=== PATIENT | female | born 1945 | race Caucasian/White ===

== ENCOUNTER 2017-09-29 12:24 | Inpatient (IN) | payer MEDICARE, BC ==
[~2017-09-29] VITALS: Ht 162.6 cm; Wt 52.2 kg
[2017-09-29] MEDS ORDERED: FLUO10CA26 PO (12:34)
[2017-09-29] MEDS ORDERED: LEVO137T24 PO (12:34)
--- NOTE | 2017-09-29 13:16 | NUR ---
PT BIB [facility] S/P GLF C/O R HIP AND BUTTOCK PAIN. NO ROTATION OR SHORTENING. DISTAL CMS INTACT. ABLE TO BEND HIP WITH MINIMAL PAIN BUT STATES SHE WAS UNABLE TO AMBULATE. NO OTHER COMPLAINTS. DENIES KO OR HEAD TRAUMA. IN ER BED 08.
[2017-09-29 14:36] LABS: BASOPHILS % (AUTO) 0.3 % (0.0-2.0); EOSINOPHILS # (AUTO) 0.1 /CMM (0.0-0.7); EOSINOPHILS % (AUTO) 0.4 % (0.0-6.0); HEMATOCRIT 25 % (33-45); HEMOGLOBIN 8.7 g/dL (11.5-14.8); LYMPHOCYTES # (AUTO) 0.8 /CMM (0.8-4.8); MEAN CORPUSCULAR HEMOGLOBIN 33 PG (26.0-33.0); MEAN CORPUSCULAR HGB CONC 35 g/dl (31.0-36.0); MEAN CORPUSCULAR VOLUME 97 fL (82-100); MONOCYTES # (AUTO) 0.5 /CMM (0.1-1.30); MONOCYTES % (AUTO) 3.8 % (2.0-12.0); NEUTROPHILS # (AUTO) 12.7 /CMM (1.8-8.9); NEUTROPHILS % (AUTO) 89.5 % (43.0-81.0); PLATELET COUNT (AUTO) 265 /CMM (150-450); RDW COEFFICIENT OF VARIATION 13.8 (11.5-15.0); RED BLOOD CELL COUNT(AUTO) 2.59 MIL/uL (4.0-5.2); WHITE BLOOD COUNT (AUTO) 14.1 K/uL (4.3-11.0)
[2017-09-29 14:46] LABS: CARBON DIOXIDE 22 mmol/L (21-32); CHLORIDE 105 mmol/L (98-107); GLUCOSE 89 mg/dL (74-106); POTASSIUM 4.8 mmol/L (3.5-5.1); SODIUM SERUM 140 mmol/L (136-145); UREA NITROGEN, BLOOD 53 mg/dL (7-18)
[2017-09-29 14:50] LABS: INR 0.98 (0.87-1.13); PROTHROMBIN TIME 10.2 SECS (9.5-12.7)
[2017-09-29] MEDS ORDERED: AMLO10TA2 PO (15:09)
[2017-09-29] MEDS ORDERED: RANI300C PO (15:09)
[2017-09-29] MEDS ORDERED: LEVO50TA8 PO (15:09)
--- NOTE | 2017-09-29 15:46 | NUR ---
DR MILIAN WAS PAGED
--- NOTE | 2017-09-29 16:15 | NUR ---
DR MILIAN AT BEDSIDE. NAD NOTED. ALL NEEDS ATTENDED TO.
[2017-09-29] MEDS ORDERED: IV D5/0.45 NACL 1,000 ML IV PRN (17:18)
[2017-09-29] MEDS ORDERED: ONDANSETRON HCL/PF 4 MG/2 ML VIAL IVP PRN (17:30)
[2017-09-29] MEDS ORDERED: MAG HYDROX/AL HYDROX/SIMETH 30 ML UDC PO PRN (17:30)
[2017-09-29] MEDS ORDERED: MAGNESIUM HYDROXIDE 30 ML UDC PO PRN (17:30)
[2017-09-29] MEDS ORDERED: ZOLPIDEM TARTRATE 5 MG TABLET PO PRN (17:30)
[2017-09-29] MEDS ORDERED: Z GUARD REMEDY 2 OZ OINT TP PRN (17:30)
--- NOTE | 2017-09-29 17:51 | NUR ---
REPORT GIVEN TO EVA MORA FOR ADMISSION
--- NOTE | 2017-09-29 18:00 | NUR ---
PT TRANSPORTED TO [facility] IN STABLE CONDITION VIA ACLS PROTOCOL WITH ALL BELONGINGS AND FRIEND AT BEDSIDE.
--- NOTE | 2017-09-29 18:15 | NUR ---
PT. ADM. TO RM.314-1.MADE COMFORTABLE,HOOKED UP TO TELE RHYTHM SR RATE OF 80.VS TAKEN.
[2017-09-29 18:32] VITALS: BP 158/85
--- NOTE | 2017-09-29 19:30 | NUR ---
RN OPENING NOTES PATIENT IS IN BED, ALERT AND ORIENTED X4. VS STABLE. NO C/O PAIN AT THIS TIME. NO SOB NOTED. RESPIRATIONS EVEN AND UNLABORED. IV ACCESS ON RFA PATENT AND INTACT, NO REDNESS OR INFILTRATION NOTED. TELE MONITOR IS IN PLACE, SR 80 BPM. BED IN LOW AND LOCKED POSITION. SIDE RAILSX2. CALL LIGHT WITHIN EASY REACH. WILL CONTINUE TO MONITOR AND ASSESS DURING THE SHIFT.
[2017-09-29 20:00] VITALS: BP 153/85
[2017-09-29 20:24] LABS: IRON, SERUM 95 ug/dl (50-175); TOTAL IRON BINDING CAPACITY 288 ug/dl (250-450)
--- NOTE | 2017-09-29 22:00 | NUR ---
RECEIVED REPORT FROM ABBY CAMPBELL FOR CONTINUITY OF CARE. PATIENT CURRENTLY IN BED WATCHING TV. NO PAIN AT THIS MOMENT. PATIENT ON SR 80 FROM TELE MONITOR. WILL CONTINUE TO MONITOR PATIENT.
--- NOTE | 2017-09-29 22:12 | NUR ---
Patient requesting for romero cath insertion because she is in a lot of pain when she moves. Per patient, she can't really tolerate using the bedpan. Paged Dr. Cabrales for romero cath order. Awaiting for call back.
--- NOTE | 2017-09-29 22:59 | NUR ---
16 FR TAVERA CATH INSERTED. PATIENT TOLERATED PROCEDURE VERY WELL. GOOD YELLOW URINE OUTPUT. WILL MONITOR PATIENT.
[2017-09-29] MEDS: MORPHINE SULFATE INJ 2 MG/ML DISP.SYRIN IV PRN (23:14)
[2017-09-30] VITALS: BP 146/77
--- NOTE | 2017-09-30 | NUR ---
PATIENT COMPLAINING OF SPASM ON THE RIGHT UPPER LEG. INFORMED DR. VILLALTA AND PER Hair IT IS NORMAL TO HAVE SPASM NEAR THE SITE OF THE FRACTURE.
[2017-09-30 04:00] VITALS: BP 149/71
--- NOTE | 2017-09-30 06:30 | NUR ---
AUTOMATIC LOG CUT OFF SAWYER - NOTES PATIENT IS REFUSING FOR BODY CHECK ON THE BACK. PER PATIENT, SHE IS IN TOO MUCH PAIN TO MOVE. NOTED SKIN TEAR ON THE RIGHT KNEE. PICTURE TAKEN AND PLACED IN CHART.
--- NOTE | 2017-09-30 06:52 | NUR ---
FRUIT THINNER MACHINE OPERATOR - CLOSING NOTES PATIENT IN BED, INTERMITTENTLY SLEEPING. TELE READING OF SINUS 82. NO S/S OF SOB OR ANY DISCOMFORT. PATIENT RATES PAIN 3/10. TAVERA CATH REMAINS INPLACE AND PATENT, DRAINING VERY WELL. WILL ENDORSE TO MORNING NURSE FOR CONTINUITY OF CARE.
[2017-09-30 06:55] LABS: INR 0.97 (0.87-1.13); PROTHROMBIN TIME 10.1 SECS (9.5-12.7)
[2017-09-30 07:14] LABS: CHOLESTEROL 216 mg/dL (<200); HDL CHOLESTEROL 85 mg/dL (40-60); LDL 102 mg/dL (0-99); TRIGLYCERIDES 186 mg/dL (30-150)
[2017-09-30 07:15] LABS: ALANINE AMINOTRANSFERASE 15 U/L (12-78); ALBUMIN 3.5 g/dL (3.4-5.0); ALKALINE PHOSPHATASE 57 U/L (46-116); ASPARTATE AMINOTRANSFERASE 18 U/L (15-37); BASOPHILS % (AUTO) 0.4 % (0.0-2.0); BILIRUBIN,TOTAL 0.8 mg/dL (0.2-1.0); CALCIUM, SERUM 8.8 mg/dL (8.5-10.1); CARBON DIOXIDE 25 mmol/L (21-32); CHLORIDE 104 mmol/L (98-107); EOSINOPHILS # (AUTO) 0.1 /CMM (0.0-0.7); EOSINOPHILS % (AUTO) 1.6 % (0.0-6.0); GLUCOSE 123 mg/dL (74-106); HEMATOCRIT 22 % (33-45); HEMOGLOBIN 7.4 g/dL (11.5-14.8); LYMPHOCYTES # (AUTO) 1.3 /CMM (0.8-4.8); LYMPHOCYTES % (AUTO) 21.2 % (20.0-44.0); MAGNESIUM 2.1 mg/dL (1.8-2.4); MEAN CORPUSCULAR HEMOGLOBIN 34 PG (26.0-33.0); MEAN CORPUSCULAR HGB CONC 34 g/dl (31.0-36.0); MEAN CORPUSCULAR VOLUME 99 fL (82-100); MONOCYTES # (AUTO) 0.6 /CMM (0.1-1.30); MONOCYTES % (AUTO) 9.9 % (2.0-12.0); NEUTROPHILS # (AUTO) 4.2 /CMM (1.8-8.9); NEUTROPHILS % (AUTO) 66.9 % (43.0-81.0); PHOSPHORUS 4.3 mg/dL (2.5-4.9); PLATELET COUNT (AUTO) 186 /CMM (150-450); POTASSIUM 4.2 mmol/L (3.5-5.1); RDW COEFFICIENT OF VARIATION 14.6 (11.5-15.0); RETICULOCYTE COUNT 0.6 % (0.6-2.5); SODIUM SERUM 137 mmol/L (136-145); TOTAL PROTEIN, SERUM 6.6 g/dL (6.4-8.2); UREA NITROGEN, BLOOD 49 mg/dL (7-18); WHITE BLOOD COUNT (AUTO) 6.3 K/uL (4.3-11.0)
--- NOTE | 2017-09-30 07:46 | NUR ---
TRAIN STARTER OPENING NOTES RECEIVED PATIENT IN STABLE CONDITION. IN NO APPARENT DISTRESS. PATIENT IS ALERT AND RESTING IN BED. BEDSIDE RAILS ARE UP X2. BED IS LOCKED AND LOWERED. CALL LIGHT IS WITHIN REACH. WILL CONTINUE TO MONITOR.
[2017-09-30 08:00] VITALS: BP 155/78
--- NOTE | 2017-09-30 09:23 | NUR ---
SPOKE TO DR MILIAN ABOUT MEDICATION RECONCILIATION. DOCTOR MAICOL WILL RECONCILE THE MEDICATION.
[2017-09-30] MEDS: PANTOPRAZOLE 40 MG TABLET.DR PO SCH (09:48)
[2017-09-30] MEDS: AMLODIPINE BESYLATE 10 MG TABLET PO SCH (09:56)
[2017-09-30] MEDS: LEVOTHYROXINE SODIUM 50 MCG TABLET PO SCH (09:57)
[2017-09-30] MEDS: Fluoxetine 10 mg capsule PO SCH (09:57)
[2017-09-30] MEDS: MORPHINE SULFATE INJ 2 MG/ML DISP.SYRIN IV PRN (12:11)
[2017-09-30] MEDS: HYDROCODONE/APAP 5/325MG 1 EACH TABLET PO PRN (13:42)
[2017-09-30 16:00] VITALS: BP 148/71
--- NOTE | 2017-09-30 17:22 | NUR ---
PATIENT WANTS TO BE DISCHARGED HOME WITH HOME HEALTH.
--- NOTE | 2017-09-30 19:00 | NUR ---
MS RN CLOSING NOTES PATIENT IS IN STABLE CONDITION. IN NO APPARENT DISTRESS. BEDSIDE RAILS ARE UP X2. BED IS LOCKED AND LOWERED. WILL ENDORSE CARE TO PHYSICIAN INTERVENTIONAL CARDIOLOGIST NURSE FOR KELECHI.
--- NOTE | 2017-09-30 19:30 | NUR ---
MS RN OPENING NOTES RECEIVED PATIENT RESTING IN BED, A & O X 4 BUT NOTED WITH FORGETFULNESS. NO SOB, NO ACUTE DISTRESS NOTED. HAS C/O PAIN RIGHT PELVIC AREA BUT REFUSED TO TAKE ANY PAIN MEDS @ THIS TIME & WILL INFORM THE NURSE WHEN PT WANTS TO TAKE PAIN MED. IV ACCESS TO RFA, INTACT PATENT. TAVERA CATH IN PLACE WITH YELLOW COLOR URINE FLOWING. BED IN LOW LOCKED POSITION. CALL LIGHT WITHIN REACH. WILL MONITOR CLOSELY.
[2017-09-30 20:00] VITALS: BP 125/74
[2017-09-30] MEDS: ACETAMINOPHEN 325 MG TABLET PO PRN (21:26)
--- NOTE | 2017-09-30 21:26 | NUR ---
PRN TYLENOL GIVEN PT HAD C/O NECK PAIN 12/18 & WANTED TO TAKE TYLENOL, PRN TYLENOL GIVEN. WILL REASSESS FOR EFFECTIVENESS.
--- NOTE | 2017-09-30 22:08 | NUR ---
Patient is alert and pleasant. She lives alone, she was ambulatory and independent with adl's prior to admission. Has no DME or homehealth reported. She will benefit from cont rehab therapy once discharge. Addendum: 09/30/17 at 2208 by FLACO CAR RN Amended: Links added.
--- NOTE | 2017-10-01 00:10 | NUR ---
MS RN NOTES PT NOTED TO BE SLEEPING COMFORTABLY, NO S/S OF PAIN NOTED. CALM & RELAXED.
--- NOTE | 2017-10-01 06:49 | NUR ---
MS RN CLOSING NOTES PATIENT SLEPT WELL @ NIGHT. DENIED C/O NECK PAIN OR RIGHT HIP/LEG PAIN NOTED. A & O X 4 WITH FORGETFULNESS @ TIMES. IV ACCESS TO RFA WITH D5 1/2 NS @ 75ML/HR BUT PT REFUSED TO CONTINUE IVF @ NIGHT, VERBALIZED OF DRINKING ENOUGH PO FLUIDS TOLERATED. HAD SNACK & PO FLUIDS @ NIGHT. BED BOUND, TAVERA CATH IN PLACE WITH YELLOW COLOR URINE FLOWING. BED IN LOW LOCKED POSITION. CALL LIGHT WITHIN REACH. WILL ENDORSE TO AM RN FOR CONTINUITY OF CARE.
[2017-10-01 07:19] LABS: BASOPHILS % (AUTO) 0.2 % (0.0-2.0); EOSINOPHILS # (AUTO) 0.2 /CMM (0.0-0.7); EOSINOPHILS % (AUTO) 2.8 % (0.0-6.0); HEMATOCRIT 22 % (33-45); HEMOGLOBIN 7.6 g/dL (11.5-14.8); LYMPHOCYTES # (AUTO) 1.4 /CMM (0.8-4.8); LYMPHOCYTES % (AUTO) 19.1 % (20.0-44.0); MEAN CORPUSCULAR HEMOGLOBIN 34 PG (26.0-33.0); MEAN CORPUSCULAR HGB CONC 35 g/dl (31.0-36.0); MEAN CORPUSCULAR VOLUME 99 fL (82-100); MONOCYTES # (AUTO) 0.6 /CMM (0.1-1.30); NEUTROPHILS # (AUTO) 5.2 /CMM (1.8-8.9); NEUTROPHILS % (AUTO) 69.9 % (43.0-81.0); PLATELET COUNT (AUTO) 173 /CMM (150-450); RDW COEFFICIENT OF VARIATION 14.3 (11.5-15.0); RED BLOOD CELL COUNT(AUTO) 2.21 MIL/uL (4.0-5.2); WHITE BLOOD COUNT (AUTO) 7.4 K/uL (4.3-11.0)
[2017-10-01 07:30] LABS: BILIRUBIN,URINE NEGATIVE (NEGATIVE); BLOOD, URINE 2+ Ery/uL (NEGATIVE); COLOR,URINE YELLOW (YELLOW); KETONES,URINE NEGATIVE (NEGATIVE); LEUKOCYTE ESTERASE ,URINE 1+ (NEGATIVE); NITRITE, URINE NEGATIVE (NEGATIVE); PH,URINE 8.5 (5.0-8.0); PROTEIN,URINE 1+ mg/dl (NEGATIVE); UGLUCOSE NEGATIVE (NEGATIVE); UROBILINOGEN,URINE 0.2 EU/dL (0.2)
--- NOTE | 2017-10-01 07:30 | NUR ---
RN NOTES RECEIVED PT. PT IS STABLE AND AWAKE IN BED. A/OX4. NO S/S OF RESPIRATORY DISTRESS OR SOB. PT HAS C/O MILD PAIN 4/10 LOCATED IN RIGHT HIP, HOWEVER REFUSES PAIN MEDICATION AT THIS TIME, WILL ADDRESS NON-PHARMACOLOGICALLY. IV ACCESS LOCATED ON RIGHT FOREARM WITH ORDER TO INFUSE D5 1/2 NS AT 75 ML/HR, HOWEVER PT REFUSES IV FLUIDS AT THIS TIME. FC IN PLACE AND PATENT. SAFETY MEASURES IN PLACE, CALL LIGHT WITHIN REACH. WILL CONTINUE TO MONITOR.
[2017-10-01 07:36] LABS: APPEARANCE,URINE SLIGHTLY CLOUDY (CLEAR)
[2017-10-01 07:38] LABS: BACTERIA,URINE 2+ /HPF (None Seen); MUCUS,URINE Few /LPF (None Seen); TRIPLE PHOSPHATE CRYSTAL,UR Few /HPF (None Seen); WBC,URINE 21-50 /HPF (0-3)
[2017-10-01 07:45] LABS: ALANINE AMINOTRANSFERASE 14 U/L (12-78); ALBUMIN 3.2 g/dL (3.4-5.0); ALKALINE PHOSPHATASE 59 U/L (46-116); ASPARTATE AMINOTRANSFERASE 16 U/L (15-37); BILIRUBIN,TOTAL 0.4 mg/dL (0.2-1.0); CALCIUM, SERUM 8.8 mg/dL (8.5-10.1); CARBON DIOXIDE 24 mmol/L (21-32); CHLORIDE 103 mmol/L (98-107); CREATININE 4.2 mg/dL (0.6-1.3); GLUCOSE 118 mg/dL (74-106); PHOSPHORUS 3.5 mg/dL (2.5-4.9); POTASSIUM 4.8 mmol/L (3.5-5.1); SODIUM SERUM 136 mmol/L (136-145); TOTAL PROTEIN, SERUM 6.7 g/dL (6.4-8.2); UREA NITROGEN, BLOOD 51 mg/dL (7-18)
[2017-10-01 07:50] LABS: CREATININE, URINE 78.6 MG/DL (30.0-125.0); URINE TOTAL PROTEIN 62.1 mg/dL (0-11.9)
[2017-10-01 07:51] LABS: CREATINE KINASE, TOTAL 119 U/L (26-192); FERRITIN 208 ng/mL (8-388)
[2017-10-01 08:00] VITALS: BP 139/74
[2017-10-01 08:09] LABS: IRON, SERUM 22 ug/dl (50-175); TOTAL IRON BINDING CAPACITY 222 ug/dl (250-450)
[2017-10-01] MEDS: Fluoxetine 10 mg capsule PO SCH (08:58)
[2017-10-01] MEDS: AMLODIPINE BESYLATE 10 MG TABLET PO SCH (08:59)
[2017-10-01] MEDS: LEVOTHYROXINE SODIUM 50 MCG TABLET PO SCH (08:59)
[2017-10-01] MEDS: PANTOPRAZOLE 40 MG TABLET.DR PO SCH (08:59)
[2017-10-01] MEDS: HYDROCODONE/APAP 5/325MG 1 EACH TABLET PO PRN (09:07)
[2017-10-01 09:47] LABS: EOSINOPHIL,URINE None Seen
[2017-10-01] MEDS: LEVOFLOXACIN (250MG) 250 MG TABLET PO SCH (12:19)
[2017-10-01] MEDS: MORPHINE SULFATE INJ 2 MG/ML DISP.SYRIN IV PRN ×2 (12:29→16:43)
[2017-10-01] MEDS ORDERED: RIVA10TA PO (13:45)
[2017-10-01] MEDS ORDERED: LEVO250T2 PO (13:45)
[2017-10-01] MEDS: SOD FERRIC GLUC 125 MG in IV NS 0.9% 100 ML IV SCH (15:09)
[2017-10-01 16:00] VITALS: BP 116/72
--- NOTE | 2017-10-01 18:34 | NUR ---
CLOSING NOTES PT IS RESTING IN BED. A/OX4. NO S/S OF RESPIRATORY DISTRESS. C/O MILD PAIN 2/10 AT THIS TIME. PT REMAINS VERY FORGETFUL AND NEEDS CONSISTENT REORIENTATION. OB STOOL SAMPLE STILL PENDING PT DID NOT HAVE BM TODAY. PER CASE MANAGEMENT, PT D/C PENDING PLACEMENT INTO ACUTE REHAB. ALL PT NEEDS ANTICIPATED AND MET. SAFETY MEASURES IN PLACE, CALL LIGHT WITHIN REACH. WILL ENDORSE TO COMPRESSED GASES TESTER FOR KELECHI.
--- NOTE | 2017-10-01 19:35 | NUR ---
MS RN OPENING NOTES RECEIVED PT IN BED AWAKE, VERBALLY RESPONSIVE ON ROOM AIR,NO SOB, NO APPARENT DISTRESS NOTED.DENIES ANY PAIN OR DISCOMFORT AT THIS TIME. IV SITE RT FA INTACT,PATENT ON D5 1/2 NS AT 75ML/HR. F/C IN PLACE DRAINING YELLOW COLOR URINE. CALL LIGHT WITHIN REACH.ATTENDED ALL NEEDS. WILL CONTINUE TO MONITOR ACCORDINGLY.
[2017-10-01 20:00] VITALS: BP 124/76
[2017-10-01 22:00] VITALS: BP 124/76
[2017-10-02] VITALS (10 sets, daily range): BP systolic 117–140; BP diastolic 61–79
[2017-10-02] MEDS: HYDROCODONE/APAP 5/325MG 1 EACH TABLET PO PRN (05:19)
--- NOTE | 2017-10-02 05:20 | NUR ---
MS RN NOTES COMPLAINED OF PAIN, NORCO 5/325 GIVEN ORDERED.WILL CONTINUE TO MONITOR.
--- NOTE | 2017-10-02 06:44 | NUR ---
MS RN NOTES PT IN BED ASLEEP,ON ROOM AIR,RESPIRATIONS EVEN, UNLABORED, NO SOB NOTED.NO S/SX OF PAIN OR DISCOMFORT NOTED. F/C IN PLACE DRAINING YELLOW COLOR URINE OUTPUT 1000ML. KEPT CLEAN AND COMFORTABLE.CALL LIGHT WITHIN REACH.WILL CONTINUE TO MONITOR ACCORDINGLY.
[2017-10-02] MEDS: LEVOTHYROXINE SODIUM 50 MCG TABLET PO SCH (06:57)
[2017-10-02] MEDS: PANTOPRAZOLE 40 MG TABLET.DR PO SCH (06:57)
--- NOTE | 2017-10-02 07:45 | NUR ---
RN OPENING NOTES RECEIVED PT. IN BED AWAKE, A&OX2, FORGETFUL AT TIMES AND CONFUSED. BREATHING UNLABORED, AND EVENLY ON ROOM AIR. NO S/S OF ACUTE DISTRESS. BED IS IN LOWEST, AND LOCKED POSITION. 2 SIDE RAILS UP, AND INSTRUCTED PT. TO USE CALL LIGHT WITHIN REACH FOR ASSISTANCE. ALL NEEDS MET. WILL CONTINUE TO ASSESS AND MONITOR.
--- NOTE | 2017-10-02 07:46 | NUR ---
RN NOTE PT. HAS TAVERA CATHETER WITH CLEAR AND YELLOW URINE WITH 60 CC OUTPUT.
[2017-10-02 08:00] LABS: BASOPHILS % (AUTO) 0.2 % (0.0-2.0); EOSINOPHILS # (AUTO) 0.2 /CMM (0.0-0.7); EOSINOPHILS % (AUTO) 2.6 % (0.0-6.0); HEMATOCRIT 21 % (33-45); HEMOGLOBIN 7.2 g/dL (11.5-14.8); LYMPHOCYTES # (AUTO) 1.1 /CMM (0.8-4.8); LYMPHOCYTES % (AUTO) 16.3 % (20.0-44.0); MEAN CORPUSCULAR HEMOGLOBIN 34 PG (26.0-33.0); MEAN CORPUSCULAR HGB CONC 34 g/dl (31.0-36.0); MEAN CORPUSCULAR VOLUME 99 fL (82-100); MONOCYTES # (AUTO) 0.7 /CMM (0.1-1.30); MONOCYTES % (AUTO) 9.5 % (2.0-12.0); NEUTROPHILS # (AUTO) 4.9 /CMM (1.8-8.9); NEUTROPHILS % (AUTO) 71.4 % (43.0-81.0); PLATELET COUNT (AUTO) 186 /CMM (150-450); RDW COEFFICIENT OF VARIATION 14.3 (11.5-15.0); RED BLOOD CELL COUNT(AUTO) 2.14 MIL/uL (4.0-5.2); WHITE BLOOD COUNT (AUTO) 6.9 K/uL (4.3-11.0)
[2017-10-02 08:41] LABS: CALCIUM, SERUM 8.7 mg/dL (8.5-10.1); CARBON DIOXIDE 23 mmol/L (21-32); CHLORIDE 102 mmol/L (98-107); CREATININE 4.2 mg/dL (0.6-1.3); GLUCOSE 113 mg/dL (74-106); PHOSPHORUS 4.3 mg/dL (2.5-4.9); POTASSIUM 4.5 mmol/L (3.5-5.1); SODIUM SERUM 135 mmol/L (136-145); UREA NITROGEN, BLOOD 45 mg/dL (7-18)
[2017-10-02] MEDS: Fluoxetine 10 mg capsule PO SCH (08:48)
[2017-10-02] MEDS: ACETAMINOPHEN 325 MG TABLET PO PRN (08:48)
[2017-10-02] MEDS: AMLODIPINE BESYLATE 10 MG TABLET PO SCH (08:49)
--- NOTE | 2017-10-02 11:13 | NUR ---
RN NOTES PT. WAS SEEN AND EXAMINED BY DR. NOONAN. PER OKAY TO PUT DVT PUMPS ON, AND AMBULATE WITH PT. TOLERATED. PER WILL ORDER XARELTO 10 MG PO DAILY, AND POSSIBLY BLOOD TRANSFUSION DUE TO LOW HGB LEVEL.
[2017-10-02] MEDS ORDERED: RIVA10TA PO (11:26)
[2017-10-02] MEDS ORDERED: EPOETIN ALFA (20,000 UNIT) 20,000 UNIT/ML VIAL SQ ONE (12:30)
[2017-10-02] MEDS: SOD FERRIC GLUC 125 MG in IV NS 0.9% 100 ML IV SCH (13:31)
--- NOTE | 2017-10-02 16:25 | NUR ---
RN NOTES STARTED PT.'S BLOOD TRANSFUSION, AND PT. IS TOLERATING WELL. WILL CONTINUE TO ASSESS AND MONITOR PT. FOR TRANSFUSION ADVERSE REACTIONS, AND COMPLICATIONS. Addendum: 10/02/17 at 1948 by SHENA SCHNEIDER RN WRONG TIME ENTRY STARTED BLOOD TRANSFUSION AT 1825.
[2017-10-02] MEDS: RIVAROXABAN 10 MG TABLET PO SCH (16:58)
--- NOTE | 2017-10-02 16:58 | NUR ---
RN NOTES HELD XARELTO ACTIVE BLEED HAS NOT BEEN RULED OUT.
--- NOTE | 2017-10-02 19:38 | NUR ---
ms/rn opening notes Patient alert, oriented x3 awake, and able to verbalize needs. Blood transfusion started at aroung 1830. o2 sat in room air at 93%, complains of 4/10 in right buttocks, will monitor, iv on RFA patent w/ no s/s of infiltration. Call lights within reach. Personal belongings within reach, provide fluids, bed hoffmann provided as patient reported having BM. will continue to monitor.
--- NOTE | 2017-10-02 19:44 | NUR ---
RN CLOSING NOTES PT. IS IN BED AWAKE, A&OX3-4, FORGETFUL AT TIMES AND CONFUSED. BREATHING UNLABORED, AND EVENLY ON ROOM AIR. NO S/S OF ACUTE DISTRESS. PT. IS RECEIVING A BLOOD TRANSFUSION. TAVERA CATHETER HAS CLEAR AND YELLOW URINE 610 CC OUTPUT. BED IS IN LOWEST, AND LOCKED POSITION. 2 SIDE RAILS UP, AND INSTRUCTED PT. TO USE CALL LIGHT WITHIN REACH FOR ASSISTANCE. ALL NEEDS MET. WILL ENDORSE REPORT TO NURSE.
--- NOTE | 2017-10-02 21:18 | NUR ---
ms/rn notes Patient alert, oriented x3, frequent reorientation regarding care is needed, able to verbalize needs and cooperative to care, Blood transfusion completed and monitoring for any s/s of adverse effect. Skin warm to touch, denies pain at this time, romero catheter with yellow urine draining. Call lights within reach, Vital signs check. will monitor.
[2017-10-03] LABS: BASOPHILS % (AUTO) 0.4 % (0.0-2.0); EOSINOPHILS # (AUTO) 0.3 /CMM (0.0-0.7); EOSINOPHILS % (AUTO) 3.9 % (0.0-6.0); HEMATOCRIT 28 % (33-45); HEMOGLOBIN 9.3 g/dL (11.5-14.8); LYMPHOCYTES # (AUTO) 1.5 /CMM (0.8-4.8); LYMPHOCYTES % (AUTO) 21.5 % (20.0-44.0); MEAN CORPUSCULAR HEMOGLOBIN 32 PG (26.0-33.0); MEAN CORPUSCULAR HGB CONC 33 g/dl (31.0-36.0); MEAN CORPUSCULAR VOLUME 97 fL (82-100); MONOCYTES # (AUTO) 0.8 /CMM (0.1-1.30); MONOCYTES % (AUTO) 11.2 % (2.0-12.0); NEUTROPHILS # (AUTO) 4.3 /CMM (1.8-8.9); PLATELET COUNT (AUTO) 201 /CMM (150-450); RDW COEFFICIENT OF VARIATION 15.6 (11.5-15.0); WHITE BLOOD COUNT (AUTO) 6.8 K/uL (4.3-11.0)
--- NOTE | 2017-10-03 07:09 | NUR ---
314-1 MS/RN NOTES APTIENT IN BED, ABLE TO SLEEP DURING THE NIGHT, SKIN WARM TO TOUCH, RESPIRATIONS EVEN AND UNLABORED, S/P BLOOD TRANSFUSION, WITH TAVERA CATHETER DRAINING YELLOW URINE, CALL LIGTHS WITHIN REACH, PAIN IN BACK, REQUIRE ASSITANCE DUE TO PAIN IN BACK AND RIGHT PELVIC FX, CALL LIGHTS WITHIN REACH, BE ALRM ON, BED IN LOCK POSITON,WILL ENDORSE TO AM RN FOR KELECHI.
--- NOTE | 2017-10-03 07:20 | NUR ---
N OPENING NOTES RECEIVED PT. IN BED AWAKE, A&OX2, FORGETFUL AT TIMES. BREATHING UNLABORED, AND EVENLY ON ROOM AIR. NO S/S OF ACUTE DISTRESS. TAVERA CATHETER HAS CLEAR AND YELLOW URINE 200 CC OUTPUT. BED IS IN LOWEST, AND LOCKED POSITION. 2 SIDE RAILS UP, AND INSTRUCTED PT. TO USE CALL LIGHT WITHIN REACH FOR ASSISTANCE. ALL NEEDS MET. WILL CONTINUE TO ASSESS AND MONITOR.
[2017-10-03] MEDS: PANTOPRAZOLE 40 MG TABLET.DR PO SCH (07:31)
[2017-10-03] MEDS: LEVOTHYROXINE SODIUM 50 MCG TABLET PO SCH (07:31)
[2017-10-03] MEDS: ACETAMINOPHEN 325 MG TABLET PO PRN (07:36)
[2017-10-03 08:00] VITALS: BP 149/73
--- NOTE | 2017-10-03 08:26 | NUR ---
RN NOTES PT. HAS A BOWEL MOVEMENT. COLLECTED PT.'S STOOL FOR OCCULT BLOOD TEST. INFORMED LABORATORY STOOL SAMPLE IS READY.
[2017-10-03] MEDS: Fluoxetine 10 mg capsule PO SCH (08:45)
[2017-10-03] MEDS: AMLODIPINE BESYLATE 10 MG TABLET PO SCH (08:45)
[2017-10-03] MEDS: HYDROCODONE/APAP 5/325MG 1 EACH TABLET PO PRN (08:48)
[2017-10-03] MEDS ORDERED: MORPHINE SULFATE INJ 2 MG/ML DISP.SYRIN IV PRN (10:00)
[2017-10-03] MEDS: LEVOFLOXACIN (250MG) 250 MG TABLET PO SCH (11:29)
[2017-10-03] MEDS: SOD FERRIC GLUC 125 MG in IV NS 0.9% 100 ML IV SCH (14:16)
[2017-10-03 16:00] VITALS: BP 132/63
--- NOTE | 2017-10-03 16:30 | NUR ---
RN NOTES PT. RECEIVED PAIN MEDICATION BEFORE PHYSICAL ACTIVITY. ENCOURAGED PT. TO GET OUT OF BED WITH FWW. PT. WAS ABLE TO TOLERATE STANDING FOR 3 MINUTES BY HOLDING ON FWW, BUT UNABLE TO TOLERATE WALKING, TAKING STEPS IN PLACE, AND BEARING WEIGHT ON RIGHT LEG DUE TO PAIN. PT. WAS ABLE TO STAND UP WITH STANDBY ASSIST. PT. WAS ABLE TO STAND UP USING WALKER 4 TIMES. PT. CONTINUED TO SIT AT THE EDGE OF THE BED.
[2017-10-03] MEDS: RIVAROXABAN 10 MG TABLET PO SCH (17:25)
--- NOTE | 2017-10-03 17:30 | NUR ---
RN NOTES PT. IS IN BED ON HER BACK HOLDING ON TO HER RIGHT KNEE. ASKED PT. IF SHE IS IN DISCOMFORT, PT. STATED SHE IS STRETCHING AND IT RELIEVES PAIN IN THE RIGHT HIP AREA. ASKED PT. IF SHE WOULD LIKE TO BE PLACED BACK INTO BED PT. REQUESTED TO CONTINUE SITTING AT THE EDGE OF THE BED. PT. WAS INSTRUCTED TO USE CALL LIGHT FOR ASSISTANCE WHEN SHE IS READY TO BE PLACED BACK INTO BED.
--- NOTE | 2017-10-03 19:51 | NUR ---
RN CLOSING NOTES PT. IN BED AWAKE, A&OX2, FORGETFUL AT TIMES. BREATHING UNLABORED, AND EVENLY ON ROOM AIR. NO S/S OF ACUTE DISTRESS. TAVERA CATHETER HAS CLEAR AND YELLOW URINE 1000 CC OUTPUT. BED IS IN LOWEST, AND LOCKED POSITION. 2 SIDE RAILS UP, AND INSTRUCTED PT. TO USE CALL LIGHT WITHIN REACH FOR ASSISTANCE. ALL NEEDS MET. WILL ENDORSE REPORT TO NURSE.
--- NOTE | 2017-10-03 19:52 | NUR ---
RN NOTES STOPPED BY PT.'S ROOM, AND PT. STATED THAT SHE WAS UPSET WITH ME BECAUSE SHE WAS ON THE FLOOR FOR AN HOUR, AND HAD TO BE HELPED BACK TO BED. PER JAIDA MORA, PT. WAS FOUND IN BED AND HAD TWO PEOPLE HELP REPOSITION PT. ON HER BACK IN BED AND PLACED LEGS IN ALIGNMENT.
[2017-10-03 20:00] VITALS: BP 145/84
--- NOTE | 2017-10-03 20:00 | NUR ---
MS/RN NOTES RECEIVED PATIENT IN BED, ALERT, ORIENTED X 2 BUT FORGETFUL AND REQUIRE REORIENTATION, RESPIRATIONS EVEN AND UNLABORED, DENIES PAIN, IN BED, HOB ELEVATED. CALL LIGHTS WITHIN REACH, REQUIRE 2 PERSON ASSIST FOR SAFETY. WILL MONITOR, BED ALARM ON , CALL LIGHTS WITHIN REACH.
--- NOTE | 2017-10-03 20:35 | NUR ---
RN NOTES DISCUSSED WITH DR. GARCIA ABOUT PT. STATING INCIDENT THAT SHE WAS ON THE FLOOR FOR AN HOUR AND NEEDED TO BED HELPED BACK INTO BED. ASKED OF WE NEED TO ORDER AN X RAY, PER MD NO NEW ORDERS GIVEN.
--- NOTE | 2017-10-03 21:00 | NUR ---
RN NOTES RECEIVE REPORT FROM NIGHT RN, A/O X 3, WITH FORGETFULNESS, IN BED RESTING COMFORTABLY PT IN STABLE CONDITION, NO S/S OF DISTRESS. SAFETY MEASURES ARE IN PLACE, CALL LIGHT IS IN REACH. WILL CONTINUE TO MONITOR.
--- NOTE | 2017-10-04 06:37 | NUR ---
MS RN CLOSING NOTES COMFORTABLY ASLEEP IN BED AND EASILY AWAKEN, TOLERATING ROOM AIR 97% RESPIRATIONS EVEN AND UNLABORED. NOT IN S/S DISTRESS. KEPT CLEAN AND DRY AND COMFORTABLE, GOOD SKIN CARE PROVIDED. ALL NURSING CARE RENDERED. NEEDS ATTENDED AND ANTICIPATED, FREQUENT VISUAL CHECK DONE FOR SAFETY EVERY 2 HOURS. ON LOW BED AT ALL TIMES TO ENSURE SAFETY. SAFE HAZARD FREE ENVIRONMENT PROVIDED. CALL LIGHT WITHIN EASY TO REACH. WILL ENDORSE NEXT SHIFT CONTINUITY OF CARE.
--- NOTE | 2017-10-04 07:44 | NUR ---
MS RN: OPENING NOTE RECEIVED PT A/OX3. SLIGHTLY FORGETFUL. ON MS. F/C IN PLACE AND DRAINING. ON CARDIAC DIET. HAS RIGHT KNEE ABRASION DUE TO S/P FALL AND FRACTURE OF PELVIS. RFA #22 SL. NO IV FLUIDS RUNNING. SITE CLEAR AND PATENT. NO REDNESS OR BLEEDING NOTED. RESTING COMFORTABLY IN BED. CALL LIGHT WITHIN REACH.
[2017-10-04 08:00] VITALS: BP 150/86
[2017-10-04] MEDS: LEVOTHYROXINE SODIUM 50 MCG TABLET PO SCH (08:28)
[2017-10-04 08:29] VITALS: BP 150/86
[2017-10-04] MEDS: Fluoxetine 10 mg capsule PO SCH (08:29)
[2017-10-04] MEDS: PANTOPRAZOLE 40 MG TABLET.DR PO SCH (08:29)
[2017-10-04] MEDS: AMLODIPINE BESYLATE 10 MG TABLET PO SCH (08:29)
[2017-10-04] MEDS: HYDROCODONE/APAP 5/325MG 1 EACH TABLET PO PRN (12:13)
[2017-10-04] MEDS: SOD FERRIC GLUC 125 MG in IV NS 0.9% 100 ML IV SCH (14:00)
--- NOTE | 2017-10-04 15:05 | NUR ---
MS RN: DISCHARGE NOTE PT A/OX3. D/C TO [facility] FOR CONTINUATION ON CARE. TOOK ALL MEDICATIONS ON TIME. REFUSED FERRITIN IV DUE TO BEING D/C. ALL RISKS AND BENEFITS EXPLAINED. IV ON R FA DC/ SITE CLEAR. NO REDNESS OR BLEEDING NOTED. ALL DISAGREE INFORMATION PROVIDED TO PT. COPIED SENT TO FACILITY. ALL VALUABLES ACCOUNTED FOR. NO DISTRESS NOTED. NO SOB NOTED. ON ROOM AIR SATING AT 97%. BP 141/70, PULSE 79, RR18, TEMP 98.2. PAIN CONTROLLED WITH PAIN MEDICATIONS. REPORT GIVEN TO KITTY AT FACILITY. ALL DISCHARGE INFORMATION SINGED BY PT.
[2017-10-05 10:10] LABS: *SPE A/G RATIO 1.6 (0.7-1.7); *SPE ALBUMIN 3.7 g/dL (2.9-4.4); *SPE ALPHA-1-GLOBULIN 0.3 g/dL (0.0-0.4); *SPE ALPHA-2-GLOBULIN 0.5 g/dL (0.4-1.0); *SPE BETA GLOBULIN 0.7 g/dL (0.7-1.3); *SPE GLOBULIN, TOTAL 2.3 g/dL (2.2-3.9); *SPE M-SPIKE Not Observed g/dL (Not Observed); *SPEGAMMA GLOBULIN 0.8 g/dL (0.4-1.8)
[2017-10-06 10:18] LABS: CALCITRIOL VIT D,1, 25 DIHYDRO 13.1 pg/mL (19.9-79.3)
[2017-10-07 17:08] LABS: PTH, INTACT 107 pg/mL (15-65)
== END 2017-10-04 15:00 | DRG 535 ==
LOC: ER 12:26 → TELE 17:14 → MED 09-30 12:28
PROVIDERS: ADMIT Internal Medicine; ATTEND Internal Medicine
PROC: 30233N1 Transfusion of Nonautologous Red Blood Cells into Peripheral Vein, Percutaneous Approach (ICD-10-PCS; principal; 2017-10-02)
DX: S32.591A Other specified fracture of right pubis, initial encounter for closed fracture (principal); N17.0 Acute kidney failure with tubular necrosis; N18.5 Chronic kidney disease, stage 5; I12.0 Hypertensive chronic kidney disease with stage 5 chronic kidney disease or end stage renal disease; S32.10XA Unspecified fracture of sacrum, initial encounter for closed fracture; N39.0 Urinary tract infection, site not specified; W18.30XA Fall on same level, unspecified, initial encounter; E03.9 Hypothyroidism, unspecified; K21.9 Gastro-esophageal reflux disease without esophagitis; Z90.5 Acquired absence of kidney; Z85.528 Personal history of other malignant neoplasm of kidney; Z91.81 History of falling; Y93.9 Activity, unspecified; Y92.009 Unspecified place in unspecified non-institutional (private) residence as the place of occurrence of the external cause; D63.8 Anemia in other chronic diseases classified elsewhere; Z79.899 Other long term (current) drug therapy; B96.4 Proteus (mirabilis) (morganii) as the cause of diseases classified elsewhere; R93.8 Abnormal findings on diagnostic imaging of other specified body structures
CPT/HCPCS: 36415; 71010-TC; 72170-TC; 72190-TC; 72192-TC; 73502; 80048-TC; 80053-TC; 80061-TC; 81000-TC; 82272-TC; 82306; 82550-TC; 82570-TC; 82652; 82728-TC; 83540-TC; 83735-TC; 83970; 84100-TC; 84155; 84155-TC; 84165; 84300-TC; 84443-TC; 85025-TC; 85045-TC; 85730-TC; 86850-TC; 86921-TC; 87040-TC; 87081-TC; 87086-TC; 87186-TC; 93307-TC; 97112-TC; 97530-TC; A4606; J0885; J2270; J2916; J3490; J7030; J7050; P9016-BL; Z7610